=== PATIENT | female | born 1955 | race Caucasian/White ===

== ENCOUNTER 2018-04-20 00:41 | Outpatient (CLI) | payer BC, SELFPAY ==
--- NOTE | 2018-04-20 11:00 | DI.MAMMO_ITS ---
SYMPTOM/DIAGNOSIS: SCREENING, Z12.31 MAMMOGRAMS: Mammograms were interpreted according to the usual protocol including computer analysis with CAD system, tomosynthesis and C view imaging. Comparison with prior examinations. Breast density B. No suspicious masses or microcalcifications are seen. There is no definite evidence of malignancy. IMPRESSION: Negative mammogram. Routine screening is recommended. Category I. MQSA ASSESSMENT OF FINDINGS: Negative. Category 1. Patient will receive a letter notifying them of these results. BI-RADS category B. There are scattered areas of fibroglandular density.
== END 2018-04-20 01:01 ==
PROVIDERS: PCP Family Medicine; Visit Provider Nurse Practitioner Family
DX: Z12.31 Encounter for screening mammogram for malignant neoplasm of breast (principal)
CPT/HCPCS: 77063; 77067

== ENCOUNTER 2018-07-26 01:48 | Outpatient (CLI) | payer BC, SELFPAY ==
[2018-07-26 09:31] LABS: ALT 24 U/L (12-78); AST 16 U/L (15-37); Albumin 3.6 g/dL (3.4-5.0); Alkaline Phosphatase 88 U/L (46-116); Anion Gap 6.7 mmol/L (3-11); BUN 7 mg/dL (7-18); Bilirubin, Total 0.3 mg/dL (0.2-1.0); CO2 29.3 mmol/L (21.0-32.0); CREATININE 0.97 mg/dL (0.55-1.02); Calcium 8.7 mg/dL (8.5-10.1); Calculated LDL 182; Chloride 103 mmol/L (98-107); Cholesterol 262 mg/dL (50-200); Estimated GFR 57.82 (mL/min/1.73m2); Glucose 96 mg/dL (70-100); HDL Cholesterol 46 mg/dL (40-60); Potassium 4.3 mmol/L (3.5-5.1); Sodium 139 mmol/L (136-145); Total Protein 6.8 g/dL (6.4-8.2); Triglyceride 172 mg/dL (30-150)
== END 2018-07-26 02:08 ==
PROVIDERS: PCP Family Medicine; Visit Provider Family Medicine
DX: Z00.00 Encounter for general adult medical examination without abnormal findings (principal); Z13.220 Encounter for screening for lipoid disorders; Z13.228 Encounter for screening for other metabolic disorders
CPT/HCPCS: 36415; 80053; 80061; 83721

== ENCOUNTER 2019-02-23 02:28 | Outpatient (CLI) | payer OTHER, SELFPAY ==
--- NOTE | 2019-02-23 15:03 | DI.CTLCSR_ITS ---
EXAM: CT CHEST LUNG CANCER SCREEN CLINICAL HISTORY: SCREENING FOR LUNG CANCER, Z87.891 PERSONAL HX NICOTINE DEPENDENCE TECHNIQUE: Low-dose chest CT was performed utilizing lung cancer screening protocol. COMPARISON: No exams were available for comparison FINDINGS: Images obtained through the upper abdomen show unremarkable appearance of visualized portions of live r and spleen. No mediastinal or hilar adenopathy seen. Tracheobronchial tree appears intact. Diffu se central lobular emphysematous changes noted. No pleural effusion or pleural-based mass. There is a triangular 5 millimeter intrapulmonary nodule in the minor fissure on the right, probably representing a pleural lymph node. There is a 5 millimeter posterior pleural-based right lower lobe nodule. No additional significant pulmonary nodules seen. No consolidation. IMPRESSION: Marked pulmonary emphysematous changes. No suspicious pulmonary nodules, benign appearance or behavior, category 2. Continue annual screenin g with LDCT in 12 months. Lung RADS Cat 2 - Benign Appearance / Behavior: Nodules with a very low likelihood of becoming a clin ically active caner due to size or lack of growth
== END 2019-02-23 02:48 ==
PROVIDERS: PCP Family Medicine; Visit Provider Family Medicine
DX: Z12.2 Encounter for screening for malignant neoplasm of respiratory organs (principal); Z87.891 Personal history of nicotine dependence; J43.9 Emphysema, unspecified; R91.1 Solitary pulmonary nodule
CPT/HCPCS: G0297

== ENCOUNTER → 2019-04-14 10:57 | Outpatient (REF) | payer OTHER, SELFPAY ==
--- NOTE | 2019-04-14 10:30 | PAPFT_PTH ---
PATIENT: Neelam Wyatt LOC: [facility] U#:[id number] AGE/SX: 69/F ROOM: RE04/14/[address]: GWEN Park : 1955 BED: DIS: SPEC #: [id number] RECD: 04/14/19 12:59 STATUS: GABRIEL REQ #: [id number] CHELY: 04/14/19 10:[address]: Di Sumner DEPT: [facility] Cytology RECD BY: Opal Carney ENTERED: 04/14/19 13:00 SP TYPE: PAPFT OTHR DR: Nadine Sheehan MD, DC Tissues: 1 - CX/ENDOCX FOR PAP SMEARS Procedures: PAP THIN PREP/UVM Screening HPV DNA PROBE Comments: [id number]
== END ==
LOC: LBN 10:57
PROVIDERS: PCP Family Medicine; Visit Provider Nurse Practitioner Family
DX: Z12.4 Encounter for screening for malignant neoplasm of cervix (principal)
CPT/HCPCS: 88142; 87624

== ENCOUNTER 2019-08-08 00:40 | Outpatient (CLI) | payer OTHER, SELFPAY ==
--- NOTE | 2019-08-08 10:35 | DI.MAMMO_ITS ---
EXAM: MG MAMMO SCREENING CLINICAL HISTORY: screening TECHNIQUE: Mammograms were interpreted according to the usual protocol including computer analysis w [employer] CAD system, tomosynthesis and C-view imaging. COMPARISON: FINDINGS: The breasts are of moderate density. There is asymmetrical radiodensity seen in both breasts. There is prior right breast biopsy clip and associated presumed scarring. There is question of increased focal radiodensity seen at this site on the CC view only on today's examination in comparison with pr ior studies including April 2018. No other significant change seen in either breast. IMPRESSION: Question increased focal radiodensity at prior biopsy site in the right breast. Spot compression vie ws and breast ultrasound recommended for further evaluation. BI-RADS Cat 0 - Assessment Incomplete: Need additional imaging evaluation: Breast Density - Category B - Scattered areas of fibroglandular density
== END 2019-08-08 01:00 ==
PROVIDERS: PCP Family Medicine; Visit Provider Nurse Practitioner Family
DX: Z12.31 Encounter for screening mammogram for malignant neoplasm of breast (principal); R92.8 Other abnormal and inconclusive findings on diagnostic imaging of breast
CPT/HCPCS: 77063; 77067

== ENCOUNTER 2019-08-11 03:28 | Outpatient (CLI) | payer OTHER, SELFPAY ==
--- NOTE | 2019-08-11 | DI.MAMMO_ITS ---
EXAM: MG MAMMO SCREEN CALL BACK UNI CLINICAL HISTORY: F/U ABNL MAMMO, ?INCREASED FOCAL RADIODENSITY AT BIOPSY SITE TECHNIQUE: Mammograms were interpreted according to the usual protocol including computer analysis w [employer] CAD system, tomosynthesis and C-view imaging. COMPARISON: FINDINGS: Additional mammographic views of the right breast and right breast ultrasound are interpreted in conj unction. These examinations were obtained to evaluate questionable new nodularity at the patient's p rior biopsy site in central portion of right breast. Additional mammographic views fail to show a di screte mass. Breast ultrasound shows no evidence of a mass or cyst IMPRESSION: . no specific evidence of malignancy at this time. Follow-up unilateral right breast mammogram recom mended in 6 months. Category: BI-RADS Cat 3 - 6 month - Probably Benign Finding: Recommend follow-up mammography in 6 months Breast Density - Category B - Scattered areas of fibroglandular density
== END 2019-08-11 03:48 ==
PROVIDERS: PCP Family Medicine; Visit Provider Nurse Practitioner Family
DX: Z12.31 Encounter for screening mammogram for malignant neoplasm of breast (principal); R92.8 Other abnormal and inconclusive findings on diagnostic imaging of breast; N64.59 Other signs and symptoms in breast
CPT/HCPCS: 76642; 77063; 77067

== ENCOUNTER 2020-02-20 01:47 | Outpatient (CLI) | payer OTHER, SELFPAY ==
--- NOTE | 2020-02-20 07:30 | DI.MAMMO_ITS ---
EXAM: MG MAMMO DIAGNOSTIC UNI CLINICAL HISTORY: 6 mo f/u Right breast Mammogram,F/U ABNL MAMMO,R92.8. TECHNIQUE: Craniocaudal and mediolateral oblique Full Field Digital Mammography views of the right b reast with Computer Aided Diagnosis followed by Tomosynthesis. COMPARISON: Priors available for comparison. FINDINGS: Mammography/Tomosynthesis: Masses/Architectural Distortion: None seen. There is a biopsy clip in the upper-outer quadrant of the right breast. Microcalcifictions: No suspicious pleomorphic-type are seen. Skin Thickening/Nipple Retraction: None. IMPRESSION: 1. No evidence of malignancy is noted. 2. Unless there is more urgent need, follow-up screening mammography is recommended, as per [place] [employer] guidelines. 3. The findings were discussed with the patient on the date of the examination. BI-RADS Category 1 - Negative Breast Density - Category B - Scattered areas of fibroglandular density A negative radiographic report should not delay biopsy if a dominant or clinically suspicious mass is present. Up to ten percent of cancers are not identified on mammography. A negative report may reinforce clinical impression. Adenosis and dense breasts may obscure an underlying neoplasm. False positive reports average 6 to 10%. Patient will receive a letter notifying them of these results.
== END 2020-02-20 02:07 ==
PROVIDERS: PCP Family Medicine; Visit Provider Nurse Practitioner Family
DX: R92.8 Other abnormal and inconclusive findings on diagnostic imaging of breast (principal)
CPT/HCPCS: 77061; 77065; G0279

== ENCOUNTER 2020-04-05 18:01 | Outpatient (CLI) | payer OTHER, SELFPAY ==
--- NOTE | 2020-04-05 18:00 | RT.EKG_ITS ---
APPROVED REPORT Exam: Resting ECG Patient Location: O HR:75 bpm ECG Measurements Heart Rate 75 AXIS WI 148 P 61 QRSd 85 QRS 23 QT 384 T 30 QTc 428 Conclusion Sinus rhythm...normal P axis, V-rate 60- 99
== END 2020-04-05 18:02 | disposition home or self-care (01) ==
LOC: DI.CM 18:02
PROVIDERS: PCP Family Medicine; Visit Provider Nurse Practitioner Family
DX: R07.89 Other chest pain (principal); R06.02 Shortness of breath
CPT/HCPCS: 93010

== ENCOUNTER 2020-04-06 06:19 | Emergency (ER) | payer OTHER, SELFPAY ==
[2020-04-06] VITALS (48 sets, daily range): BP systolic 101–142; BP diastolic 51–79; PULSE 75–106; RESP 17–32; TEMP 36.6–36.8; O2SAT 85–97
--- NOTE | 2020-04-06 06:15 | RT.EKG_ITS ---
APPROVED REPORT Exam: Resting ECG Patient Location: E HR:82 bpm ECG Measurements Heart Rate 82 AXIS PA 146 P 60 QRSd 86 QRS 2 QT 375 T -3 QTc 440 Conclusion Sinus rhythm...normal P axis, V-rate 60- [address] [place] [address]-T changes No STEMI
--- NOTE | 2020-04-06 06:44 | W.ED.GENAD ---
Discharge Plan Disposition Patient Disposition: HOME Condition: Improving Discharge Details Clinical Impression: Chest wall muscle strain, Acute cervical myofascial strain, Acute thoracic myofascial strain, Pneumonia Primary Care Provider: Nadine Sheehan ED Provider: Negra Padgett Home Meds and New Rx's Prescriptions: New amoxicillin-pot clavulanate [Augmentin] 875-125 mg tablet 1 tab PO BID 7 Days Qty: 14 RF: 0 methocarbamol 500 mg tablet 500 mg PO Q6H PRN (Reason: muscle spasm) Qty: 14 RF: 0 naproxen [Naprosyn] 500 mg tablet 500 mg PO BID PRN (Reason: pain) Qty: 14 RF: 0 Continued sertraline 100 mg tablet 100 mg PO DAILY Qty: 90 RF: 11 Discharge Instructions Instructions: Cervical Strain (ED), Muscle Strain (ED), Pneumonia (ED) Additional Instructions: Alternate ice and heat to the affected area(s) several times daily for 20 minutes at a time. Take the naproxen and methocarbamol as needed and directed for pain. Take the antibiotics until finished. Follow-up with your primary care doctor in 1 week. Return to the emergency department with any worsening or new concerning symptoms. Discharge Data Discharge Physician: Negra Padgett Medical Decision Making <Maximiliano Garcia MD - Last Filed: 04/06/20 07:43> Patient presenting with worsening chest pain that radiates to the back and is pleuritic as well. Some radiation toward the neck. EKG this morning is unchanged from EKG done last night at urgent care. Pain better with fentanyl. Pain likely musculoskeletal in nature but consider dissection, PE, less likely ACS. Doubt pneumonia or pneumothorax. No evidence of pericarditis on EKG. IV in place. Will start fluids and plan CTA of chest abdomen to evaluate for dissection and PE. Will get laboratory studies including a troponin which if this is cardiac in nature should be positive after 24 hours of worsening pain. Pain beginning to return and we will treat with Toradol as I do believe this is musculoskeletal in nature and related to her shoveling snow. 7:45 AM-patient laboratory studies unremarkable. Troponin negative. Patient currently in CT and will be signed out to oncoming physician for final disposition. Medical Records Medical records reviewed: Yes I reviewed the patient's medical records. Lab Data Lab results reviewed: Yes I reviewed the patient's lab results. ECG Data Attestation: I personally reviewed and interpreted this ECG (s) as follows: Prior ECG tracings: available for review Interpretation: see EKG <Negra Padgett DO - Last Filed: 04/06/20 11:27> 0800 --please see Dr. Garcia's note for initial presentation, exam and plan. Case endorsed to follow-up on imaging results and with plan for repeat troponin and EKG. Patient assessed by me at bedside. She described pain that is worse with breathing and movement located in her anterior chest, neck and upper back. Her pain is reproducible. Suspect this is most likely musculoskeletal after shoveling. Troponin is negative. Her EKG is unremarkable. She appears uncomfortable. Will give a dose of morphine, Valium p.o. and Decadron and reassess. CT chest notes a left lower lobe pneumonia but no PE or dissection. Patient reassessed and she feels much better. Although she has no report of cough, fever, with normal white blood cell count, she has a history of COPD and is a smoker so we will treat with antibiotics. 1040 --repeat troponin negative. Repeat EKG unchanged. She was given a dose of Augmentin here as well as to go. Was sent home with Augmentin, methocarbamol and naproxen prescriptions. Patient was able to ambulate and had no acute complaints. Oxygen saturation mid 90s on room air. Advised to follow up with the primary care doctor for re-evaluation. Usual and customary return precautions given prior to discharge. Medical Records Medical records reviewed: Yes I reviewed the patient's medical records. Imaging Data Radiologic Study: Radiologist's impression: CT Angiography Chest With Contrast Exam date and time: 04/06/2020 6:54 AM Age: 64 years old Clinical indication: Other: Chest pain, raidating to back with pluretic componet TECHNIQUE: Imaging protocol: Computed tomographic angiography of the chest with contrast. 3D rendering (Not supervised by radiologist): MIP and/or 3D reconstructed images were created by the technologist. Radiation optimization: All CT scans at this facility use at least one of these dose optimization techniques: automated exposure control; mA and/or kV adjustment per patient size (includes targeted exams where dose is matched to clinical indication); or iterative reconstruction. Contrast material: OMNIPAQUE 350; Contrast volume: 100 ml; Contrast route: INTRAVENOUS (IV); COMPARISON: CT CHEST LUNG CANCER SCREEN 02/23/2019 3:03 PM FINDINGS: Pulmonary arteries: Normal. No pulmonary emboli. Aorta: There is motion artifact around the ascending aorta. The thoracic aorta is unremarkable with no evidence of aneurysm or dissection. Lungs: There is bilateral dependent atelectasis. There is airspace consolidation in the left lower lobe and left middle lobe consistent with pneumonia. Smaller infiltrates in the right lower lobe cannot exclude right basilar pneumonia. Pleural spaces: Unremarkable. No pneumothorax. No pleural effusion. Heart: The heart is mildly enlarged. Lymph nodes: There are multiple mildly prominent lymph nodes in the mediastinum which may be reactive in nature. Bones/joints: Chronic degenerative changes are present in the spine with disc space narrowing sclerosis and osteophytes. Soft tissues: Unremarkable. IMPRESSION: 1. No evidence of pulmonary embolus or aortic dissection. 2. Bibasilar atelectasis and consolidation especially on the left side consistent with pneumonia. 3. Mild cardiomegaly. CT Angiography Abdomen With Contrast Exam date and time: 04/06/2020 6:54 AM Age: 64 years old Clinical indication: Other: Chest pain, raidating to back with pluretic componet TECHNIQUE: Imaging protocol: Computed tomographic angiography images of the abdomen with intravenous contrast material. 3D rendering (Not supervised by radiologist): MIP and/or 3D reconstructed images were created by the technologist. Radiation optimization: All CT scans at this facility use at least one of these dose optimization techniques: automated exposure control; mA and/or kV adjustment per patient size (includes targeted exams where dose is matched to clinical indication); or iterative reconstruction. Contrast material: OMNIPAQUE 350; Contrast route: INTRAVENOUS (IV); COMPARISON: CT CHEST LUNG CANCER SCREEN 02/23/2019 3:03 PM FINDINGS: Aorta: There is calcified atherosclerotic plaquing in the abdominal aorta and iliac arteries but there is no evidence of abdominal aortic aneurysm, dissection. Celiac trunk and mesenteric arteries: No occlusion or significant stenosis. Renal arteries: No occlusion or significant stenosis. Liver: Normal. No mass. Gallbladder and bile ducts: Normal. No calcified stones. No ductal dilation. Pancreas: Normal. No ductal dilation. Spleen: Normal. No splenomegaly. Adrenals: Normal. No mass. Kidneys and ureters: Normal. No hydronephrosis. Stomach and bowel: Unremarkable. No obstruction. No mucosal thickening. Lymph nodes: Unremarkable. No enlarged lymph nodes. Intraperitoneal space: Unremarkable. No free air. No significant fluid collection. Bones/joints: Chronic degenerative changes are present in the spine with disc space narrowing sclerosis and osteophytes. Soft tissues: Unremarkable. IMPRESSION: 1. Atherosclerotic changes in the aorta but no aneurysm or dissection. 2. No acute abnormalities are seen in the abdomen. Lab Data Lab results reviewed: Yes I reviewed the patient's lab results. Labs: Laboratory Tests Range/Units 04/06/20 04/06/20 04/06/20 07:00 07:00 09:58 WBC (4.4-10.8) 10^3/uL 10.64 RBC (3.93-5.22) 10^6/uL 4.17 Hgb (11.2-15.7) g/dL 12.8 Hct (36.0-46.0) % 38.7 MCV (80-95) fL 92.8 MCH (27.0-33.0) pg 30.7 MCHC (32.0-36.0) % 33.1 RDW (11.7-14.6) % 12.9 Plt Count (130-400) 10^3/uL 273 MPV (8.0-11.0) fL 9.5 Immature Gran % 0.3 Neutrophils % 79.6 Lymphocytes % 11.5 Monocytes % 6.3 Eosinophils % 1.7 Basophils % 0.6 Nucleated RBC % % 0 Absolute Neutrophils (1.2-6.7) 10^3/uL 8.48 H Absolute Lymphocytes (1.2-3.4) 10^3/uL 1.22 Absolute Monocytes (0.1-0.8) 10^3/uL 0.67 Absolute Eosinophils (0.0-0.7) 10^3/uL 0.18 Absolute Basophils (0.0-0.2) 10^3/uL 0.06 Sodium (136-145) mmol/L 140 Potassium (3.5-5.1) mmol/L 3.9 Chloride (98-107) mmol/L 104 Carbon Dioxide (21.0-32.0) mmol/L 26.7 Anion Gap (3-11) mmol/L 9.3 BUN (7-18) mg/dL 9 Creatinine (0.55-1.02) mg/dL 1.1 H Estimated GFR/1.73 m2 (mL/min/1.73m2) 49.69 Glucose (74-106) mg/dL 121 H Calcium (8.5-10.1) mg/dL 8.5 Magnesium (1.8-2.4) mg/dL 2.0 Total Bilirubin (0.2-1.0) mg/dL 0.4 AST (15-37) U/L 13 L ALT (14-59) U/L 21 Alkaline Phosphatase (46-116) U/L 87 Troponin I (<0.06) ng/mL < 0.05 < 0.05 Total Protein (6.4-8.2) g/dL 7.2 Albumin (3.4-5.0) g/dL 3.7 ECG Data Attestation: I personally reviewed and interpreted this ECG (s) as follows: Interpretation: #1 -- Rate of 82, sinus, T wave inversion in lead III, aVF, V3. No STEMI. [place] 146. QRS 86. QTc 440. #2 -- Rate of 88, sinus, T wave inversion in lead III, aVF, V3 unchanged from previous. No STEMI. [place] 157. QRS 86. QTc 440. HPI <Maximiliano Garcia MD - Last Filed: 04/06/20 07:43> General Mode of arrival: EMS. Date/Time Provider Initiated Documentation: 04/06/20 06:36. Limitations to Documentation: no limitations. Information obtained by: patient, RN notes reviewed and old records reviewed. HPI Narrative: Patient presenting to ED with chest pain that radiates through to the back but has also pleuritic in nature. Patient reports she woke up with the symptoms yesterday morning. She had been shoveling snow the day before. During the day yesterday she did take some Advil. Pain did not get any better and if anything was worse such that she presented to the urgent care. She had an EKG done which was felt to be normal. She declined referral to the ED for further work-up. She went home and was unable to sleep or be comfortable in the pain continued to get worse such that she called EMS this morning. She did receive fentanyl in route. She feels much better here now. Still complains of the pain no much less severe at this point. Pain is worse with movement, breathing. She does not necessarily feel overly short of breath but has difficulty taking breaths. She denies fever or cough. She is a daily smoker. She denies any exposure to Covid. She denies leg pain or leg swelling. Related Data Home Medications Medication Instructions Recorded Confirmed sertraline 100 mg tablet 100 mg PO DAILY #90 tab-cap 08/07/19 04/06/20 amoxicillin-pot clavulanate 1 tab PO BID 7 Days #14 tab 04/06/20 [Augmentin] methocarbamol 500 mg PO Q6H PRN #14 tab 04/06/20 naproxen [Naprosyn] 500 mg PO BID PRN #14 tab 04/06/20 Previous Rx's Medication Instructions Recorded sertraline 100 mg tablet 100 mg PO DAILY #90 tab-cap 08/07/19 amoxicillin-pot clavulanate 1 tab PO BID 7 Days #14 tab 04/06/20 [Augmentin] methocarbamol 500 mg PO Q6H PRN #14 tab 04/06/20 naproxen [Naprosyn] 500 mg PO BID PRN #14 tab 04/06/20 Allergies Allergy/AdvReac Type Severity Reaction Status Date / Time No Known Allergies Allergy Verified 04/06/20 06:34 General Stated Complaint: GenMedical DANGELO: 3 Review of Systems <Maximiliano Garcia MD - Last Filed: 04/06/20 07:43> Narrative: As documented in HPI otherwise negative as below. Const: no fever, chills, weakness Resp: no cough, SOB CV: diaphoresis, edema, syncope GI: no abdominal pain, nausea, vomiting, diarrhea Neuro: no headache, numbness, focal weakness, confusion PFS <Maximiliano Garcia MD - Last Filed: 04/06/20 07:43> Medical History Abnormal finding on thyroid function test 04/25/13 Adenomatous polyp of colon Anxiety 01/12/17 ERINN-7 SCORE; 16 Chronic obstructive pulmonary disease (12/04/14) Chronic right-sided low back pain without sciatica (06/15/16) Degenerative lumbar disc (06/16/16) Depression Epigastric pain 12/04/14 Hernia, femoral (07/10/14) S/P REPAIR Nicotine dependence, uncomplicated 05/07/14 Palpitations (04/25/13) Peptic reflux disease Postmenopausal state (09/05/12) Vitamin D deficiency (05/04/13) Surgical History Colonoscopy - IV Sedation 04/29 Repair of inguinal hernia (09/03/14) LEFT S/P left inguinal hernia repair 09/05/14 Family History Mother , AGE 94 Psoriatic arthritis Dementia Parkinson's disease Celiac disease Father , AGE 85 Diabetes Stroke Son Hyperthyroidism Sister , AGE 66 Celiac disease Small intestine cancer Brother , AGE 58 Alcohol abuse Cirrhosis of liver Maternal Grandfather Colon cancer Sister No problems noted. Brother Psoriatic arthritis Afib Brother No problems noted. Brother , 1 WEEK OLD No problems noted. Brother , 1 WEEK OLD No problems noted. Social History Smoking/Tobacco Use Status: Never Tobacco: How many years used: 40 Smoking risk assessment performed?: Yes Alcohol Intake: current Alcohol Intake frequency: a few times a month Alcohol type: beer Drug use: Never Substance use type: does not use Counseling given: No Counseling provided: none Caregiver/Support person: No Household members: spouse Housing: house Do you need help understanding health information?: Never Pets and animals: Yes Pets and animals: cat(s) Current gender identity: female What is your relationship status?: How often do you talk on the phone with friends or family?: twice per week How often do you get together with friends or relatives?: once per week How often do you attend tenriism or episcopal services?: decline to answer Panel score (0-1 are the most socially isolated patients): 2 Duration: 15-30 minutes/day Frequency: 1-2 times per week Estrella/Anabaptism: Temple Special estrella needs: Yes (LAST RIGHTS) Seatbelt use: always Drive 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 HEENT: NC/AT. Normal facial exam. Eyes: Normal conjunctiva and sclera. Neck: Supple. Trachea midline. Lungs: Normal respiratory effort. Lungs are clear. Chest wall tender to palp throughout. Cor: RRR with murmur heard best at apex. Good radial pulses. GI: Soft. NT/ND. No guarding or rebound. Neuro: A+O x 3. Normal speech, mentation, gait. Cranial nerves II - XII grossly intact. No gross motor or sensory deficit. Ext: No C/C/E. No calf tenderness. Skin: Warm and dry without rash. Course <Maximiliano Garcia MD - Last Filed: 04/06/20 07:43> Vital Signs Vital signs: Vital Signs Temperature 98.2 F 04/06/20 06:21 Pulse 83 04/06/20 06:21 Respiratory Rate 20 04/06/20 06:21 Blood Pressure 142/69 H 04/06/20 06:21 Pulse Oximetry 92 04/06/20 06:21 Temperature 98.2 F 04/06/20 06:21 Temperature Source Skin 04/06/20 06:21 Pulse 83 04/06/20 06:21 Respiratory Rate 23 04/06/20 06:31 Respiratory Effort Non-Labored 04/06/20 06:31 Respiratory Depth Normal 04/06/20 06:31 Respiratory Pattern Normal 04/06/20 06:31 Blood Pressure 142/69 H 04/06/20 06:21 Blood Pressure Position Sitting 04/06/20 06:21 Pulse Oximetry 92 04/06/20 06:21 Oxygen Delivery Method Room Air 04/06/20 06:21 Oxygen Flow Rate 0 04/06/20 06:21 Pain Level 2 04/06/20 06:21 Sign Out <Maximiliano Garcia MD - Last Filed: 04/06/20 07:43> Sign Out Data: Sign Out Comment: Pending CTA results Last updated by Maximiliano Garcia MD at 04/06/20 07:49
[2020-04-06] MEDS: Ketorolac 15 MG/ML VIAL IVP (07:05)
[2020-04-06 07:06] LABS: Abs Immature Grans 0.03 10^3/uL (0.0-0.06); Absolute Basophil Count 0.06 10^3/uL (0.0-0.2); Absolute Eosinophil Count 0.18 10^3/uL (0.0-0.7); Absolute Lymphocyte Count 1.22 10^3/uL (1.2-3.4); Absolute Monocyte Count 0.67 10^3/uL (0.1-0.8); Absolute Neutrophil Count 8.48 10^3/uL (1.2-6.7); Basophils % 0.6; Eosinophils % 1.7; HCT 38.7 % (36.0-46.0); HGB 12.8 g/dL (11.2-15.7); Immature Grans % 0.3; Lymphocytes % 11.5; MCH 30.7 pg (27.0-33.0); MCHC 33.1 % (32.0-36.0); MCV 92.8 fL (80-95); MPV 9.5 fL (8.0-11.0); Monocytes % 6.3; Neutrophils % 79.6; Nucleated RBC 0 %; Platelet Count 273 10^3/uL (130-400); RBC 4.17 10^6/uL (3.93-5.22); RDW 12.9 % (11.7-14.6); RDW-SD 44.3 fL; WBC 10.64 10^3/uL (4.4-10.8)
[2020-04-06] MEDS: Lactated Ringers 1,000 ML 200 ML IV (07:08)
[2020-04-06 07:22] LABS: ALT 21 U/L (14-59); AST 13 U/L (15-37); Albumin 3.7 g/dL (3.4-5.0); Alkaline Phosphatase 87 U/L (46-116); Anion Gap 9.3 mmol/L (3-11); BUN 9 mg/dL (7-18); Bilirubin, Total 0.4 mg/dL (0.2-1.0); CO2 26.7 mmol/L (21.0-32.0); CREATININE 1.1 mg/dL (0.55-1.02); Calcium 8.5 mg/dL (8.5-10.1); Chloride 104 mmol/L (98-107); Estimated GFR 49.69 (mL/min/1.73m2); Glucose 121 mg/dL (74-106); Potassium 3.9 mmol/L (3.5-5.1); Sodium 140 mmol/L (136-145); Total Protein 7.2 g/dL (6.4-8.2); Troponin I < 0.05 ng/mL (<0.06)
--- NOTE | 2020-04-06 08:00 | DI.CT_ITS ---
EXAM: CT THORAX ABDOMEN CTA CLINICAL HISTORY: chest pain radiating to back with pleuritic compon. TECHNIQUE: Imaging Protocol: Axial computed tomography images with coronal and sagittal reformatted images were created and reviewed CONTRAST MATERIAL: Intravenous: Omnipaque 350 Contrast volume:100 ml Oral: None COMPARISON: CT ABD PELVIS WITH CONTRAST from 06/03/2017 FINDINGS: CHEST: LUNGS: There is infiltrate in the posterior basal and lateral basal segments of the left lower lobe. Also in the lingular segment. Minimal amount of pleural fluid. Milder infiltrate noted in the oppo site-right lung base posterior basal segment.. MEDIASTINUM: There is no hilar nor mediastinal adenopathy. Visualized thyroid unremarkable. CARDIAC: Heart size upper normal. There is no pericardial effusion. AORTA: Caliber of the thoracic aorta is within normal limits.There is no evidence of aortic dissectio n. There is no evidence of abdominal prominent aortic aneurysm nor dissection.However, there calcified p laque in the abdominal aorta anterolaterally left side. Maximum diameter the abdominal aorta is 2 cm at this level.The celiac and superior mesenteric arteries are patent.Inferior mesenteric artery is p atent. There is no high-grade stenosis at the aortic bifurcation nor within the patent common iliac arteries. There is no aneurysmal dilatation of the common iliac arteries. ABDOMEN: There is no ascites. LIVER: There are no focal hepatic lesions nor dilatation of intrahepatic ducts. GALLBLADDER/BILIARY: Mild distension of the gallbladder noted. No obvious intraluminal gallstones no r gallbladder wall edema. CBD is not dilated. PANCREAS: No evidence of pancreatic mass nor dilatation of the pancreatic duct. SPLEEN: Spleen is not enlarged. There are no intrasplenic lesions. Splenic and portal veins are stover nt. ADRENALS: There are no significant adrenal masses. KIDNEYS: No cysts evident. No calculi nor hydronephrosis. No solid renal masses. ABDOMINAL AORTA: Atherosclerotic changes. No aneurysm or dissection evident LYMPH NODES: There is no retroperitoneal nor para-aortic adenopathy. No obvious mesenteric masses. ABDOMINAL WALL/GI: No evidence of significant anterior abdominal wall hernia. There is a small fat c ontaining anterior abdominal wall umbilical hernia. No bowel obstruction. Mid-lower pelvis was not scanned OSSEOUS: No significant osseous lesions. IMPRESSION: 1. Left lower lobe infiltrate. Also mild infiltrate in the lingular segment. No prominent pleural e ffusions. No intrathoracic adenopathy. 2. Some atherosclerotic changes are noted in the aorta, however, is no evidence of aortic dissection. 3. Mild distention of gallbladder noted. No gallbladder wall edema. There is a subtle suggestion of possible density in the lower gallbladder, possibly representing a calculus or polyp. Recommend fol low-up ultrasound. 4. No significant findings in the kidneys, liver, and spleen. No obvious bowel obstruction. RADIATION DOSE DELIVERED: 490.42mGy.cm Total DLP DATA REPOSITORY: All CT scans at this facility are submitted to the National Radiology Data Registry (NRDR) Dose Index Registry (DIR) with the [employer] (ACR). RADIATION OPTIMIZATION: All CT scans at this facility use at least one of these dose optimization te chniques: automated exposure control; mA and/or kV adjustment per patient size (includes targeted exa ms where dose is matched to clinical indication); or iterative reconstruction.
[2020-04-06] MEDS: Omnipaque 350 MG/ML 100 ML BTL IJ (08:02)
[2020-04-06] MEDS: Normal Saline - Diluent 50 ML VIAL IV (08:03)
[2020-04-06] MEDS: Normal Saline Flush 10 ML SYR IVP (08:03)
--- NOTE | 2020-04-06 08:35 | DI.VRAD_ITS ---
PROCEDURE INFORMATION: Exam: CT Angiography Chest With Contrast Exam date and time: 04/06/2020 6:54 AM Age: 64 years old Clinical indication: Other: Chest pain, raidating to back with pluretic componet TECHNIQUE: Imaging protocol: Computed tomographic angiography of the chest with contrast. 3D rendering (Not supervised by radiologist): MIP and/or 3D reconstructed images were created by the technologist. Radiation optimization: All CT scans at this facility use at least one of these dose optimization techniques: automated exposure control; mA and/or kV adjustment per patient size (includes targeted exams where dose is matched to clinical indication); or iterative reconstruction. Contrast material: OMNIPAQUE 350; Contrast volume: 100 ml; Contrast route: INTRAVENOUS (IV); COMPARISON: CT CHEST LUNG CANCER SCREEN 02/23/2019 3:03 PM FINDINGS: Pulmonary arteries: Normal. No pulmonary emboli. Aorta: There is motion artifact around the ascending aorta. The thoracic aorta is unremarkable with no evidence of aneurysm or dissection. Lungs: There is bilateral dependent atelectasis. There is airspace consolidation in the left lower lobe and left middle lobe consistent with pneumonia. Smaller infiltrates in the right lower lobe cannot exclude right basilar pneumonia. Pleural spaces: Unremarkable. No pneumothorax. No pleural effusion. Heart: The heart is mildly enlarged. Lymph nodes: There are multiple mildly prominent lymph nodes in the mediastinum which may be reactive in nature. Bones/joints: Chronic degenerative changes are present in the spine with disc space narrowing sclerosis and osteophytes. Soft tissues: Unremarkable. IMPRESSION: 1. No evidence of pulmonary embolus or aortic dissection. 2. Bibasilar atelectasis and consolidation especially on the left side consistent with pneumonia. 3. Mild cardiomegaly. PROCEDURE INFORMATION: Exam: CT Angiography Abdomen With Contrast Exam date and time: 04/06/2020 6:54 AM Age: 64 years old Clinical indication: Other: Chest pain, raidating to back with pluretic componet TECHNIQUE: Imaging protocol: Computed tomographic angiography images of the abdomen with intravenous contrast material. 3D rendering (Not supervised by radiologist): MIP and/or 3D reconstructed images were created by the technologist. Radiation optimization: All CT scans at this facility use at least one of these dose optimization techniques: automated exposure control; mA and/or kV adjustment per patient size (includes targeted exams where dose is matched to clinical indication); or iterative reconstruction. Contrast material: OMNIPAQUE 350; Contrast route: INTRAVENOUS (IV); COMPARISON: CT CHEST LUNG CANCER SCREEN 02/23/2019 3:03 PM FINDINGS: Aorta: There is calcified atherosclerotic plaquing in the abdominal aorta and iliac arteries but there is no evidence of abdominal aortic aneurysm, dissection. Celiac trunk and mesenteric arteries: No occlusion or significant stenosis. Renal arteries: No occlusion or significant stenosis. Liver: Normal. No mass. Gallbladder and bile ducts: Normal. No calcified stones. No ductal dilation. Pancreas: Normal. No ductal dilation. Spleen: Normal. No splenomegaly. Adrenals: Normal. No mass. Kidneys and ureters: Normal. No hydronephrosis. Stomach and bowel: Unremarkable. No obstruction. No mucosal thickening. Lymph nodes: Unremarkable. No enlarged lymph nodes. Intraperitoneal space: Unremarkable. No free air. No significant fluid collection. Bones/joints: Chronic degenerative changes are present in the spine with disc space narrowing sclerosis and osteophytes. Soft tissues: Unremarkable. IMPRESSION: 1. Atherosclerotic changes in the aorta but no aneurysm or dissection. 2. No acute abnormalities are seen in the abdomen. Dictated and Authenticated by: Daquan Trent MD. Ordering:STEVE Viera MD
[2020-04-06] MEDS: diazePAM 5 MG TAB PO ×2 (08:43→10:52)
[2020-04-06] MEDS: Dexamethasone 10 MG/ML VIAL IVP (08:46)
--- NOTE | 2020-04-06 09:15 | RT.EKG_ITS ---
APPROVED REPORT Exam: Resting ECG Patient Location: E HR:88 bpm ECG Measurements Heart Rate 88 AXIS [place] 157 P 62 QRSd 86 QRS 16 QT 364 T 1 QTc 440 Conclusion Sinus rhythm...normal P axis, V-rate 60- 99 Nonspecific T abnormalities, anterior leads...T <-0.10mV, V2-V4. No STEMI. No acute change from previous. I have reviewed and interpreted ECG and agree with software generated interpretation.
[2020-04-06 10:33] LABS: Troponin I < 0.05 ng/mL (<0.06)
[2020-04-06] MEDS: Amoxicillin 875/Clav. 125 TAB PO (10:51)
[2020-04-06] MEDS: Amox. 875/Clav. 125, 2 TABS/BTL 1 TAB PO (10:52)
== END 2020-04-06 11:11 | disposition home or self-care (01) ==
PROVIDERS: Emergency Medicine; Emergency Provider Physician Assistant; PCP Family Medicine
DX: S29.011A Strain of muscle and tendon of front wall of thorax, initial encounter (principal); S16.1XXA Strain of muscle, fascia and tendon at neck level, initial encounter; S29.012A Strain of muscle and tendon of back wall of thorax, initial encounter; X58.XXXA Exposure to other specified factors, initial encounter; J18.9 Pneumonia, unspecified organism; J44.9 Chronic obstructive pulmonary disease, unspecified; F17.210 Nicotine dependence, cigarettes, uncomplicated
CPT/HCPCS: 71275; 74175; 80053; 93005; 96374; 96375; 99285; 83735; 84484; 85025; 93010; 99284; J1100; J1885; J3490

== ENCOUNTER 2020-08-13 02:10 | Outpatient (CLI) | payer OTHER, SELFPAY ==
--- NOTE | 2020-08-13 10:36 | DI.MAMMO_ITS ---
Exam(s) MAMMO SCREENING EXAM: MAMMO SCREENING CLINICAL HISTORY: screening TECHNIQUE: Mammograms were interpreted according to the usual protocol including computer analysis w [employer] CAD system, tomosynthesis and C-view imaging. COMPARISON: FINDINGS: the breasts are of moderate density with fairly symmetrical distribution of fibroglandular tissue. Prior right breast biopsy is again noted with biopsy clip in position in the upper outer quadrant of the right breast. There are areas of persistent nodularity near the biopsy clip, unchanged in appear ance comparison with prior examinations including July 2019. no new mass or clumped microcalcificatio n seen in either breast.. IMPRESSION: No specific evidence of malignancy at this time. Routine screening examinations are suggested at ye marcos intervals in this age group according to the ACS ACR guidelines. BI-RADS Category 1 - Negative Breast Density - Category B - Scattered areas of fibroglandular density
== END 2020-08-13 02:30 ==
PROVIDERS: PCP Family Medicine; Visit Provider Nurse Practitioner Family
DX: Z12.31 Encounter for screening mammogram for malignant neoplasm of breast (principal); R92.8 Other abnormal and inconclusive findings on diagnostic imaging of breast
CPT/HCPCS: 77063; 77067

== ENCOUNTER 2021-08-11 17:55 | Outpatient (REF) | payer MEDICARE, SELFPAY ==
[2021-08-12 14:08] LABS: COVID-19 RT-PCR UVMMC Result Negative (Negative)
== END 2021-08-11 17:56 | disposition home or self-care (01) ==
LOC: LBN 17:55
PROVIDERS: PCP Family Medicine; Visit Provider Nurse Practitioner Family
DX: Z20.822 Contact with and (suspected) exposure to COVID-19 (principal)
CPT/HCPCS: U0003; U0005

== ENCOUNTER → 2021-09-05 09:27 | Outpatient (BNVA) | payer MEDICARE, SELFPAY | PROVIDERS: PCP Family Medicine; Referring Provider Family Medicine; Visit Provider Physical Therapy Assistant | DX: Z86.010 Personal history of colon polyps (principal); Z12.11 Encounter for screening for malignant neoplasm of colon ==

== ENCOUNTER 2021-10-09 08:08 | Day surgery (SDC) | payer MEDICARE, SELFPAY ==
--- NOTE | 2021-10-09 06:01 | W.PM.HP.N ---
Date of service: 10/09/21 Assessment and Plan Assessment and plan (1) Screening for colon cancer: Status: Acute Assessment and plan: Proceed with screening colonoscopy today History of Present Illness History of Present Illness Chief Complaint: routine health maintence Narrative: 65 y/o female with history of COPD presents for colonoscopy screening pre-op. Her last screening was in 2014 which was remarkable for tubular adenomatous polyp. She denies a family history of colon cancer. She denies any changes in bowel habits including bloody or black tarry stools, abdominal pain, diarrhea or constipation. She denies constitutional symptoms. Denies use of marijuana or any other recreational or illegal drugs. She denies chest pain, palpitations, dyspnea or dyspnea with exertion. She denies prior history or family history of adverse reactions or complications with anesthesia. The patient denies any history of stroke, CT, seizures, bleeding or clotting disorders. She denies having any implanted metal in her body. Review of Systems Constitutional Constitutional: Reports system reviewed and no additional complaints, except as documented Eyes Eyes: Reports system reviewed and no additional complaints, except as documented ENT Ears, Nose, Mouth, and Throat: Reports system reviewed and no additional complaints, except as documented Cardiovascular Cardiovascular: Denies chest pain and Denies dyspnea Respiratory Respiratory: Denies chest congestion and Denies dyspnea Gastrointestinal Gastrointestinal: Reports diarrhea and Reports loose stools Comments: from prep Musculoskeletal Musculoskeletal: Reports system reviewed and no additional complaints, except as documented Neurologic Neurologic: Reports system reviewed and no additional complaints, except as documented PFSH All Active Problems Chronic obstructive pulmonary disease (Chronic 12/04/14) Tubular adenoma of colon (Chronic 04/04/15) Screening for colon cancer (Acute) Stress due to illness of family member (Acute) Medical History Abnormal finding on thyroid function test 04/25/13 Adenomatous polyp of colon Anxiety 01/12/17 ERINN-7 SCORE; 16 Atypical mole Cervical strain, acute Chronic right-sided low back pain without sciatica (06/15/16) Degenerative lumbar disc (06/16/16) Depression Epigastric pain 12/04/14 Hernia, femoral (07/10/14) S/P REPAIR Herpes zoster 05/2020 Intercostal muscle strain Nicotine dependence, uncomplicated 05/07/14 Palpitations (04/25/13) resolved Peptic reflux disease Postmenopausal state (09/05/12) Vitamin D deficiency (05/04/13) Surgical History Colonoscopy - IV Sedation 04/29 Repair of inguinal hernia (09/03/14) LEFT S/P left inguinal hernia repair 09/05/14 Status post inguinal hernia repair (09/05/14) persistent abdominal pain since operation Family History Mother , AGE 94 Psoriatic arthritis Dementia Parkinson's disease Celiac disease Father , AGE 85 Diabetes Stroke Son Hyperthyroidism Sister , AGE 66 Celiac disease Small intestine cancer Brother , AGE 58 Alcohol abuse Cirrhosis of liver Maternal Grandfather Colon cancer Sister No problems noted. Brother Psoriatic arthritis Afib Brother No problems noted. Brother , 1 WEEK OLD No problems noted. Brother , 1 WEEK OLD No problems noted. Social History Smoking/Tobacco Use Status: Current every day Tobacco Type: cigarettes Tobacco: How many years used: 40 Quit status: not considering quitting Smoking risk assessment performed?: Yes Alcohol Intake: current Alcohol Intake frequency: a few times a month Alcohol type: beer Drug use: Never Substance use type: does not use Counseling given: No Counseling provided: none Caregiver/Support person: No Household members: spouse Housing: house Communication Needs: None Do you need help understanding health information?: Never Pets and animals: Yes Pets and animals: cat(s) Sexually active: Yes Do you think of yourself as: straight/heterosexual Current gender identity: female What is your relationship status?: How often do you talk on the phone with friends or family?: three or more times per week How often do you get together with friends or relatives?: once per week How often do you attend gnosticist or lutheran services?: decline to answer Panel score (0-1 are the most socially isolated patients): 2 What type of physical activity do you participate in: other Details: work to the bone? 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 Do you feel safe at home: Yes Do you feel safe in your relationship?: Yes Victim of physical abuse: No Victim of emotional abuse: No Victim of sexual abuse: No Would you like helpful sources: No History History 1 Para 1 Hx # Term Pregnancies Multiple births Hx # Pregnancies Ectopic pregnancies AB induced Hx Number of Living Children AB spontaneous Meds Allergies and Home Medications Allergies Allergy/AdvReac Type Severity Reaction Status Date / Time No Known Allergies Allergy Verified 10/08/21 09:06 Home Medications Medication Instructions Recorded Confirmed Type ibuprofen 200 mg tablet (Advil) 600 mg PO Q6H PRN 04/15/20 10/08/21 History sertraline 100 mg tablet 100 mg PO DAILY #90 tab-caps 11/18/20 10/09/21 Rx Exam Const General: cooperative, healthy appearing and comfortable Orientation: awake and oriented x3 Eyes General: appearance normal, both eyes and all related structures Conjunctivae: conjunctivae normal Sclera: sclerae normal Resp Effort & Inspection: normal respiratory effort and able to speak in complete sentences Cardio Jugular venous pressure: no JVD Rate: regular rate GI Inspection: non-distended Palpation: soft, no guarding, no hernias and nontender Auscultation: normal bowel sounds Skin General skin exam: normal turgor Neuro General: patient alert, patient awake and patient oriented x3 Cognition: normal cognition Extrem Right lower extremity: no edema Left lower extremity: no edema
--- NOTE | 2021-10-09 06:02 | W.PM.DSUDISC ---
Discharge Plan Disposition Patient Disposition: HOME Condition: Good Discharge Details Reason For Visit: Colonocsopy Attending Provider: Kennedy Gorman Primary Care Provider: Nadine Sheehan Home Meds and New Rx's Prescriptions: Continued ibuprofen [Advil] 200 mg tablet 600 mg PO Q6H PRN sertraline 100 mg tablet 100 mg PO DAILY Qty: 90 11RF Discontinued bisacodyl [Dulcolax (bisacodyl)] 5 mg tablet,delayed release (DR/EC) 5 mg PO ONCE Qty: 4 0RF Rx Instructions: Take according to provider's instructions for colonoscopy prep. Discharge Instructions Instructions: Colonoscopy (DC), Colorectal Polyps (DC) Additional Instructions: 1. If tolerated, consume a soft, low fiber diet for 1-2 days. 2[address] Do not drive, drink alcohol, operate machinery, make critical decisions, or do activities that require coordination or balance for 24 hours. 3. Because air was put into your colon during the procedure, expelling air from your rectum (passing gas or farting) is normal. 4. You may not have a bowel movement for 1-3 days because of the colonoscopy prep. This is normal. 5. Go directly to the emergency room if you notice any of the following: Develop chills (warm to touch), or if you have a thermometer and your temperature is above 101 Difficulty breathing or difficultly swallowing Persistent vomiting Severe abdominal pain, other than gas cramps Severe chest pain Black, tarry stools Any bleeding ? exceeding one tablespoon 6. Call your physician if the site where your intravenous was started becomes red, swollen, painful, and warm to touch. 7. Your physician has reviewed your pre-procedure medications. Please continue to take those medications as previously ordered. You will be given specific information/education regarding any changes to your medications before leaving. Referrals: Nadine Sheehan MD, [place] [Primary Care Provider] - Activity:: Activity as Tolerated Diet:: As Tolerated Discharge Orders Discharge Orders: Discharge Order (Routine); Ordered 10/09/21 Ordered By: Kennedy Gorman DS: Diagnosis Discharge Diagnosis (1) Screening for colon cancer: Status: Acute Asessment and Plan: rectal polyp removed; my office will contact you with results
--- NOTE | 2021-10-09 06:04 | W.COLOREPORT ---
Colonoscopy Report Date of procedure: 10/09/21 Pre-op diagnosis general: Screening colonoscopy for routine health maintenance Post-op diagnosis procedure note: other (colon polyp at 35 cm) Procedure: Colonoscopy Surgeon: Kennedy Gorman Anesthesia Type: General:No Airway Estimated blood loss (mL): 15 Pathology: other (colon polyp) Complications: None Disposition: same day Indications: Nighat is a 65-year-old woman with a history of a tubulovillous adenoma polyp on previous colonoscopy in 2014. She returns for another screening colonoscopy today as part of routine health maintenance Prep: Miralax/Dulcolax Procedure Start Time: 09:19 Procedure End Time: 10:01 Retraction Time: 29 Findings: colon polyp at 35 cm- raised and purple Procedure Description: After the induction of monitored anesthetic care, and with the patient in left lateral decubitus position, I began by performing an external anorectal exam.? Perineum and skin were normal, as was the anal verge.? There was no evidence of external hemorrhoids.? Next, I performed a digital rectal exam.? I did not appreciate any abnormal findings.? Next, I advanced a colonoscope into the rectal vault.? I performed retroflexion.? I did not see signs of pathologic internal hemorrhoids.? Using insufflation, I then advanced the colonoscope beyond the rectal folds and into the sigmoid colon before advancing towards the cecum.? The quality of the prep was poor.? The scope was noted to be in the cecum by identification of the ileocecal valve and appendiceal orifice.? I then began withdrawing the colonoscope using repeated irrigation as necessary for full evaluation of the colonic mucosa. Because of the quality of the prep, the colon required repeated washing. Around 35 cm from the anal verge I identified a purple,raised 1.5 cm polyp. ?It appeared sessile in character. ?I was able to remove this with a cold biopsy forecps. ?I examined the site, and there was minimal bleeding. ?Once this was completed, I continued to withdraw the scope and examine the remainder of the colonic mucosa. Once the scope was withdrawn to the level of the rectum, great care was taken to examine portions of the rectal folds.? Finally, the scope was withdrawn and the patient was brought to the same-day surgery recovery unit as the anesthetic wore off. ?The findings and instructions were shared with the patient prior to discharge.
[2021-10-09 08:15] VITALS: BP 105/72; PULSE 66; RESP 18; TEMP 36.2; O2SAT 100
[2021-10-09] MEDS: Lactated Ringers 1,000 ML 80 ML IV (08:34)
--- NOTE | 2021-10-09 08:59 | ANES.PREOP_ITS ---
General Info Date of Service Date Performed: 10/09/21 Height: 5 ft 6 in Weight: 67 kg Body Mass Index (BMI): 23.8 Surgical Procedure: Operation Date: 10/09/21 09:50 Proposed Procedure Side Surgeon p Colonoscopy Kennedy Gorman MD Meds Allergies and Home Medications Allergies Allergy/AdvReac Type Severity Reaction Status Date / Time No Known Allergies Allergy Verified 10/08/21 09:06 Home Medication Medication Instructions Recorded ibuprofen 200 mg tablet (Advil) 600 mg PO Q6H PRN 04/15/20 sertraline 100 mg tablet 100 mg PO DAILY #90 tab-caps 11/18/20 Current Visit Medications: Current Medications Generic Name Dose Route Start Last Admin Trade Name Freq PRN Reason Stop Dose Admin Ringer's Solution 1,000 mls @ 80 mls/hr 10/09/21 06:00 10/09/21 08:34 IV 11/07/21 23:59 80 mls/hr INFUSION RANDI Administration IV Miscellaneous Supplies 1 each 10/09/21 06:00 Iv Access IV 11/07/21 23:59 DIRECTED RANDI Sodium Chloride 0 ml 10/09/21 06:00 Normal Saline Flush 10 Ml Syr IV 11/07/21 23:59 PRN PRN Sodium Chloride 0 ml 10/09/21 06:00 Normal Saline 10 Ml Vial IJ 11/07/21 23:59 DIRECTED PRN Sterile Water 0 ml 10/09/21 06:00 Water,Injection,Sterile 10 Ml Vial IJ 11/07/21 23:59 DIRECTED PRN PFSH Active Problems Active Problems: Problem Status Onset Code Chronic obstructive pulmonary disease 12/04/14 J44.9 Tubular adenoma of colon 04/04/15 D12.6 Screening for colon cancer Z12.11 Stress due to illness of family member Z63.79 Medical History Medical History Abnormal finding on thyroid function test 04/25/13 Adenomatous polyp of colon Anxiety 01/12/17 ERINN-7 SCORE; 16 Atypical mole Cervical strain, acute Chronic right-sided low back pain without sciatica (06/15/16) Degenerative lumbar disc (06/16/16) Depression Epigastric pain 12/04/14 Hernia, femoral (07/10/14) S/P REPAIR Herpes zoster 05/2020 Intercostal muscle strain Nicotine dependence, uncomplicated 05/07/14 Palpitations (04/25/13) resolved Peptic reflux disease Postmenopausal state (09/05/12) Vitamin D deficiency (05/04/13) Surgical History Surgical History Colonoscopy - IV Sedation 04/29 Repair of inguinal hernia (09/03/14) LEFT S/P left inguinal hernia repair 09/05/14 Status post inguinal hernia repair (09/05/14) persistent abdominal pain since operation Tobacco Smoking/Tobacco Use Status: Current every day Tobacco Type: cigarettes Smoking cigarettes per day: 3 Passive smoking exposure: Yes Alcohol Alcohol Intake: current Alcohol intake frequency: a few times a month Alcohol type: beer Substance Use Substance use: Never Substance use type: does not use Counseling provided: none Prental History History 2 1 Para 1 Hx # Term Pregnancies Multiple births Hx # Pregnancies Ectopic pregnancies AB induced Hx Number of Living Children AB spontaneous Vital Signs and Lab Results Vital Signs Most Recent Vital Signs in EMR: Most Recent Vital Signs Temp Pulse Resp BP Pulse Ox 36.2 C L 66 18 105/72 100 10/09/21 08:15 10/09/21 08:15 10/09/21 08:15 10/09/21 08:15 10/09/21 08:15 Lab Results Blood Type / Crossmatch: No Data to Display Complete Blood Count: No Data to Display Complete Metabolic Panel: No Data to Display Liver Function Panel: No Data to Display Coagulation Panel: No Data to Display Cardiac Panel: No Data to Display Arterial Blood Gas: No Data to Display Venous Blood Gas: No Data to Display Pancreas Panel: No Data to Display Thyroid Panel: No Data to Display Infectious Disease: No Data to Display Blood Cultures: No Data to Display Toxicology Panel: No Data to Display Anesthesia Assessment and Plan Anesthesia History Personal History: No History of Anesthesia Complications Family History: No Family History of Anesthesia Complications Exercise Tolerance Exercise Tolerance: Metabolic Equivalents>4 Pertinent Negatives Pertinent Negatives: No Symptoms of GERD Cardiac & Pulmonary Exam Cardiac Exam: Normal S1/S2 Heart Sounds Pulmonary Exam: Clear Bilateral Breath Sounds Implantable Cardiac Device Does patient have a Pacemaker or an ICD?: No Airway Exam Known Difficult Airway: No Mallampati Class: 3 Mouth Opening: Normal (> 3cm) Thyromental Distance: Greater than 3 cm Neck Range of Motion: Full ROM Neck Circumference: Normal Teeth Condition: Normal Dentition ASA Classification ASA Score: ASA 2 Emergency Case?: No NPO Status NPO Status: NPO Clears >2 hours, Solids >8 hours Anesthesia Plan Resuscitation Status: Full Code Anesthesia Technique: General Anesthesia Airway Planned: Natural Airway Monitors Used: Standard Monitors
[2021-10-09 09:03] VITALS: BMI 23.8
--- NOTE | 2021-10-09 09:58 | BOWEL_PTH ---
PATIENT: Neelam Wyatt LOC: [facility] U#:[id number] AGE/SX: 65/F ROOM: RE10/09/[address]: Kennedy Gorman MD : [id number] BED: DIS: 10/09/2021 SPEC #: [id number] RECD: 10/09/21 12:59 STATUS: GABRIEL REQ #: [id number] CHELY: 10/09/21 09:[address]: Kennedy Gorman DEPT: Surgical Specimen RECD BY: Opal Carney ENTERED: 10/09/21 13:00 SP TYPE: Bowel OTHR DR: Nadine Sheehan MD, DC Tissues: 1 - BIOPSY BOWEL Procedures: GROSS AND MICRO LEVEL 4 Comments: [id number]
[2021-10-09 10:10] VITALS: BP 112/77; PULSE 59; RESP 16; TEMP 36.4; O2SAT 99
--- NOTE | 2021-10-09 10:17 | W.ANESPOSTOP ---
Postoperative Evaluation Date, Time and Location Date Performed: 10/09/21 Time Performed: 10:17 Patient Location: Day Surgery Unit Vital Signs Most Recent Imported Vital Signs: Most Recent Vital Signs Temp Pulse Resp BP Pulse Ox 36.2 C L 66 18 105/72 100 10/09/21 08:15 10/09/21 08:15 10/09/21 08:15 10/09/21 08:15 10/09/21 08:15 Most Recent Manually Entered Vital Signs: Adult Blood Pressure: 112/77 Heart Rate: 53 Respirations: 12 Oxygen Saturation (%): 99 Temperature (C): 36.4 C Pain Score (0-10 Scale): 0 Assessment Mental Status: Awake (Alert & Oriented to Patient Baseline) Airway and Respiratory Function: Patent airway with normal (patient baseline) respiratory exam Cardiovascular Function: Hemodynamically Stable Hydration Status: Adequately Hydrated Nausea & Vomiting: No Nausea or Vomiting Pain: Pt. Denies Any Pain Peripheral Nerve Block: Patient did not receive a nerve block
[2021-10-09 10:20] VITALS: BP 112/77; PULSE 53; RESP 12; TEMPC 36.4; O2SAT 99
[2021-10-09 10:40] VITALS: BP 126/65; PULSE 58; RESP 18; TEMP 36; O2SAT 98
== END 2021-10-09 10:58 | disposition home or self-care (01) ==
PROVIDERS: PCP Family Medicine; Visit Provider Surgery
PROC: 0DJD8ZZ Inspection of Lower Intestinal Tract, Via Natural or Artificial Opening Endoscopic (ICD-10-PCS; CPT 45378; principal; 2021-10-09 09:45)
DX: Z12.11 Encounter for screening for malignant neoplasm of colon (principal); Z86.010 Personal history of colon polyps; J44.9 Chronic obstructive pulmonary disease, unspecified; K63.5 Polyp of colon; K63.89 Other specified diseases of intestine
CPT/HCPCS: 45380; 88305

== ENCOUNTER 2022-08-27 02:18 | Outpatient (CLI) | payer MEDICARE, SELFPAY ==
--- NOTE | 2022-08-27 08:30 | DI.DEXA_ITS ---
Exam(s) XR DEXA BONE DENSITY W/WO CHACE EXAM: XR DEXA BONE DENSITY W/WO CHACE CLINICAL HISTORY: screening for osteoporosis in postmenopausal woman,z78.0 TECHNIQUE: Routine DEXA evaluation of the lumbar spine, hip, or forearm. COMPARISON: No exams were available for comparison FINDINGS: Performed on a Hologic unit. Lateral image: No compression fracture evident. Lumbar Spine total T-score: -1.2 Hip total T-score:-1.5 Independent reading at the level of the femoral neck yields T-score of -2.9 Forearm total T-score: -1.0 IMPRESSION: Bone mineral density measures in the osteoporosis range. Fracture risk is high. Note: Any spine fracture indicates 5x risk for subsequent spine fracture and 2x risk for subsequent h ip fracture. World Health Organization criteria for BMD interpretation classify patients: Normal...... T- Score at or above -1.0 Osteopenic... T- Score between -1.0 and -2.5 Osteoporosis... T-Score at or below -2.5
--- NOTE | 2022-08-27 08:30 | DI.MAMMO_ITS ---
Exam(s) MAMMO SCREENING EXAM: MAMMO SCREENING CLINICAL HISTORY: screening,z12.39. TECHNIQUE: Bilateral full field digital CC and MLO mammographic images were obtained with 3D tomosyn thesis and utilizing computer aided detection (CAD). COMPARISON: Prior mammograms were reviewed. FINDINGS: There has been no significant change in the appearance and distribution of the fibroglandular tissue. Biopsy marker clip in the right breast is again noted. There are no new significant findings in the immediate vicinity of this clip nor elsewhere in either breast. Benign-appearing nodules are unchang ed in the right breast. There are no new spiculated masses nor malignant appearing microcalcification groups. There is no significant architectural distortion nor skin thickening-retraction. IMPRESSION: No radiographic evidence of malignancy. BI-RADS Category 1 - Negative Breast Density - Category B - Scattered areas of fibroglandular density Breast density Category C or D implies that the patient has dense breast tissue. Dense breast tissue can make it harder to find cancer on a mammogram. Dense breast tissue is also associated with an incr eased risk of breast cancer. This information about the result of the mammogram report was provided to the patient to raise their awareness. Use this report when you speak with the patient about their risks for breast cancer, which includes their family history. At that time, you may recommend additional screening tests (Ultrasoun d or MRI) as these tests may add significant information. A negative radiographic report should not delay biopsy if a dominant or clinically suspicious mass is present. Up to ten percent of cancers are not identified on mammography. A negative report may reinforce clinical impression. Adenosis and dense breasts may obscure an underlying neoplasm. False positive reports average 6 to 10%. Patient will receive a letter notifying them of these results.
== END 2022-08-27 02:38 ==
LOC: DI 02:18
PROVIDERS: PCP Family Medicine; Visit Provider Family Medicine
DX: Z12.31 Encounter for screening mammogram for malignant neoplasm of breast (principal); Z78.0 Asymptomatic menopausal state; N60.81 Other benign mammary dysplasias of right breast; M85.88 Other specified disorders of bone density and structure, other site
CPT/HCPCS: 77063; 77067; 77080